=== PATIENT | female | born 1945 | race Caucasian/White ===

== ENCOUNTER 2019-04-23 13:53 | Inpatient (IN) ==
[2019-04-23] MEDS ORDERED: Isovue-370 500 ML BOTTLE IVP ONE (14:02)
[2019-04-23 14:37] LABS: Hematocrit 44.2 % (35.3-44.9); Hemoglobin 14.6 g/dL (11.5-15.4); Mean Corpuscular Hemoglobin 28.9 pg (28.0-33.3); Mean Corpuscular Volume 87.4 fL (83.0-100.0); Mean Platelet Volume 9.7 fL (9.4-12.4); Platelet Count 174 K/mcL (140-400); Red Blood Count 5.06 M/mcL (3.82-4.97); Red Cell Distribution Width 13.2 % (11.5-14.5); White Blood Count 7.4 K/mcL (4.3-11.1)
[2019-04-23 14:38] LABS: INR 1.2; Prothrombin Time 13.1 Seconds (9.4-12.1)
[2019-04-23 14:48] LABS: BUN/Creatinine Ratio 20 (6-26); Blood Urea Nitrogen 12 mg/dL (8-23); Calcium 8.9 mg/dL (8.6-10.3); Carbon Dioxide 26 mEq/L (23-29); Chloride 101 mEq/L (98-107); Glucose 159 mg/dL (70-105); Osmolality,Calculated 283 (280-300); Potassium 3.9 mEq/L (3.5-5.1); Sodium 135 mEq/L (136-145); Troponin I < 0.03 ng/mL (< 0.04); eGFR For African Americans > 60 (> 60); eGFR For Non-African Americans > 60 (> 60)
[2019-04-23] MEDS ORDERED: Acetaminophen 325 MG TABLET PO PRN (15:56)
[2019-04-23] MEDS ORDERED: Naloxone 0.4 MG/ML INJ IVP PRN ×2 (15:56→17:09)
[2019-04-23] MEDS ORDERED: *HR* Dextrose 50 % in Water (Syg) 50 ML SYRINGE IVP PRN (16:05)
[2019-04-23] MEDS ORDERED: Dextrose Gel 15 GM/37.5 ML TUBE PO PRN ×2 (16:05)
[2019-04-23] MEDS ORDERED: D5% in Water 1,000 ML IVC PRN (16:05)
[2019-04-23] MEDS ORDERED: Aspirin 81 MG TAB.CHEW PO ONE (16:15)
[2019-04-23] MEDS: Insulin LISPRO 300 UNITS/3 ML VIAL SQ SCH ×2 (18:02→20:32)
[2019-04-23] MEDS ORDERED: *HR* Metoprolol 5 MG/5 ML VIAL IVP ONE ×2 (20:06→20:10)
[2019-04-23] MEDS: Metoprolol XL (24 HR) Succ 50 MG TAB.ER.24H PO SCH (20:33)
[2019-04-23] MEDS ORDERED: *HR* Labetalol 20 MG/4 ML SYRINGE IVP ONE (21:47)
[2019-04-24] MEDS ORDERED: *HR* Metoprolol 5 MG/5 ML VIAL IVP ONE (03:20)
[2019-04-24 06:27] LABS: Hematocrit 43.2 % (35.3-44.9); Hemoglobin 14.5 g/dL (11.5-15.4); Mean Corpuscular HGB Conc 33.6 g/dL (31.6-35.5); Mean Corpuscular Hemoglobin 29.4 pg (28.0-33.3); Mean Corpuscular Volume 87.4 fL (83.0-100.0); Platelet Count 172 K/mcL (140-400); Red Blood Count 4.94 M/mcL (3.82-4.97); Red Cell Distribution Width 13.2 % (11.5-14.5); White Blood Count 6.7 K/mcL (4.3-11.1)
[2019-04-24 06:43] LABS: BUN/Creatinine Ratio 23 (6-26); Blood Urea Nitrogen 13 mg/dL (8-23); Calcium 9.2 mg/dL (8.6-10.3); Carbon Dioxide 32 mEq/L (23-29); Chloride 100 mEq/L (98-107); Glucose 92 mg/dL (70-105); Osmolality,Calculated 282 (280-300); Potassium 3.4 mEq/L (3.5-5.1); Sodium 136 mEq/L (136-145); eGFR For African Americans > 60 (> 60); eGFR For Non-African Americans > 60 (> 60)
[2019-04-24] MEDS: Insulin LISPRO 300 UNITS/3 ML VIAL SQ SCH ×4 (07:34→20:58)
[2019-04-24] MEDS: Aspirin 81 MG TAB.CHEW PO SCH (09:03)
[2019-04-24] MEDS: Metoprolol XL (24 HR) Succ 50 MG TAB.ER.24H PO SCH ×2 (09:03→20:58)
[2019-04-24] MEDS: Ipratropium/Albuterol Neb 3 ML IH SCH ×3 (11:27→21:53)
[2019-04-25] MEDS: Ipratropium/Albuterol Neb 3 ML IH SCH ×3 (04:13→16:07)
[2019-04-25 05:39] LABS: BUN/Creatinine Ratio 31 (6-26); Blood Urea Nitrogen 15 mg/dL (8-23); Carbon Dioxide 29 mEq/L (23-29); Chloride 100 mEq/L (98-107); Glucose 96 mg/dL (70-105); Osmolality,Calculated 283 (280-300); Potassium 4.1 mEq/L (3.5-5.1); Sodium 136 mEq/L (136-145); eGFR For African Americans > 60 (> 60); eGFR For Non-African Americans > 60 (> 60)
[2019-04-25] MEDS: Metoprolol XL (24 HR) Succ 50 MG TAB.ER.24H PO SCH (09:07)
[2019-04-25] MEDS: Aspirin 81 MG TAB.CHEW PO SCH (09:07)
[2019-04-25] MEDS: Insulin LISPRO 300 UNITS/3 ML VIAL SQ SCH ×2 (09:08→12:22)
[2019-04-25 12:28] LABS: Bilirubin,Urine Negative (Negative); Blood,Urine Negative (Negative); Clarity,Urine Cloudy (Clear); Color,Urine Yellow (Yellow); Glucose,Urine (UA) Normal (Normal); Ketones,Urine Negative (Negative); Leukocyte Esterase,Urine Small (Negative); Nitrite,Urine Negative (Negative); Protein,Urine Negative (Neg-Trace); Specific Gravity,Urine 1.019 (1.010-1.025); Urobilinogen,Urine Normal (Normal)
[2019-04-25 12:32] LABS: Bacteria,Urine None Seen per hpf (None-Few); Hyaline Casts,Urine None Seen per lpf (None-Few); RBC,Urine 0-3 per hpf (0-3); Squamous Epithelial Cell,Urine Many per lpf (None-Few)
[2019-04-25 15:20] VITALS: BP 150/72
== END 2019-04-25 17:47 | disposition home health service (06) | DRG 66 ==
LOC: EMEROOARM 13:53 → 3BNU 13:53 → SUATTDRO 15:11 → 3BNU 16:06
PROVIDERS: ADMIT Internal Medicine; ATTEND Internal Medicine

== ENCOUNTER 2020-09-15 14:37 | Inpatient (IN) ==
[2020-09-15] MEDS ORDERED: Isovue-370 500 ML BOTTLE IVP ONE (14:47)
[2020-09-15 15:24] LABS: VBG HCO3 33 mEq/L (21-27); VBG PCO2 59 mmHg (41-51); VBG PH 7.36 pH Units (7.32-7.42); VBG PO2 66 mmHg (25-50)
[2020-09-15 15:28] LABS: Hematocrit 42.5 % (35.3-44.9); Hemoglobin 13.8 g/dL (11.5-15.4); INR 1.4; Mean Corpuscular HGB Conc 32.5 g/dL (31.6-35.5); Mean Corpuscular Hemoglobin 29.9 pg (28.0-33.3); Mean Platelet Volume 10.5 fL (9.4-12.4); Platelet Count 150 K/mcL (140-400); Prothrombin Time 15.9 Seconds (9.4-12.1); Red Blood Count 4.62 M/mcL (3.82-4.97); Red Cell Distribution Width 12.6 % (11.5-14.5); White Blood Count 25.2 K/mcL (4.3-11.1)
[2020-09-15 15:40] LABS: BUN/Creatinine Ratio 25 (6-26); Blood Urea Nitrogen 13 mg/dL (8-23); Calcium 8.6 mg/dL (8.6-10.3); Carbon Dioxide 31 mEq/L (23-29); Chloride 95 mEq/L (98-107); Ethanol < 10 mg/dL (Less than 10); Glucose 206 mg/dL (70-105); Osmolality,Calculated 280 (280-300); Potassium 3.9 mEq/L (3.5-5.1); Sodium 132 mEq/L (136-145); Troponin I < 0.03 ng/mL (< 0.04); eGFR For African Americans > 60 (> 60); eGFR For Non-African Americans > 60 (> 60)
[2020-09-15] MEDS ORDERED: Doxycycline 100 MG in 0.9 % Sodium Chloride Mini Bag 100 ML IVPB ONE (16:25)
[2020-09-15] MEDS ORDERED: cefTRIAXone 1,000 MG in Water for inj. (sterile) 10 ML IVP ONE (16:30)
[2020-09-15] MEDS ORDERED: CEFTRIAXONE IN IS-OSM DEXTROSE 1 GM/50 ML PIGGYBACK IV SCH (16:30)
[2020-09-15] MEDS ORDERED: Furosemide 20 MG/2 ML VIAL IVP ONE (16:30)
[2020-09-15] MEDS ORDERED: Naloxone 0.4 MG/ML INJ IVP PRN (16:40)
[2020-09-15] MEDS ORDERED: Aspirin 325 MG TABLET PO ONE (17:38)
[2020-09-15] MEDS ORDERED: D5% in Water 1,000 ML IVC PRN (18:04)
[2020-09-15] MEDS ORDERED: *HR* Dextrose 50 % in Water (Vial) 50 ML VIAL IVP PRN (18:04)
[2020-09-15] MEDS ORDERED: Dextrose Gel 15 GM/37.5 ML TUBE PO PRN ×2 (18:04)
[2020-09-15] MEDS ORDERED: Perflutren Lipid Microsphere 1.3 ML in 0.9 % Sodium Chloride 8.7 ML IVP PRN (18:20)
[2020-09-15 18:33] LABS: ABG Base Excess 5 mEq/L (-2 to 3); ABG HCO3 34 mEq/L (21-27); ABG Oxygen Saturation 93 % (95-98); ABG PCO2 65 mmHg (35-45); ABG PH 7.33 pH Units (7.32-7.45); ABG PO2 74 mmHg (85-104); ABG TCO2 36 mEq/L (20-26)
[2020-09-15 18:55] LABS: Thyroid Stimulating Hormone 1.198 mcIU/mL (0.340-5.600)
[2020-09-15 20:19] LABS: Albumin/Globulin Ratio 1.5 (1.1-2.2); Bilirubin,Direct 0.1 mg/dL (0.0-0.2); Bilirubin,Indirect 0.6 mg/dL (0.0-1.0); Bilirubin,Total 0.7 mg/dL (0.3-1.0); Globulin 2.7 g/dL (2.4-3.5); Total Protein 6.7 g/dL (6.4-8.9)
[2020-09-15 21:59] LABS: Adenovirus Not Detected (Not Detect); Bordetella Pertussis Not Detected (Not Detect); Chlamydophila pneumoniae Not Detected (Not Detect); Coronavirus 229E Not Detected (Not Detect); Coronavirus HKU1 Not Detected (Not Detect); Coronavirus NL63 Not Detected (Not Detect); Coronavirus OC43 Not Detected (Not Detect); Human Metapneumovirus Not Detected (Not Detect); Human Rhinovirus/Enterovirus Not Detected (Not Detect); Influenza A Subtype 2009 H1 Not Detected (Not Detect); Influenza B Not Detected (Not Detect); Mycoplasma pneumoniae Not Detected (Not Detect); Parainfluenza Virus 1 Not Detected (Not Detect); Parainfluenza Virus 2 Not Detected (Not Detect); Parainfluenza Virus 3 Not Detected (Not Detect); Parainfluenza Virus 4 Not Detected (Not Detect); Respiratory Syncytial Virus Not Detected (Not Detect); SARS-CoV-2 Not Detected (Not Detect)
[2020-09-15] MEDS: Insulin LISPRO 300 UNITS/3 ML VIAL SUBQ SCH (23:51)
[2020-09-16 01:27] LABS: INR 1.4; Prothrombin Time 16.4 Seconds (9.4-12.1)
[2020-09-16 01:46] LABS: Alanine Aminotransferase 14 Units/L (7-52); Albumin 3.5 g/dL (3.5-5.7); Albumin/Globulin Ratio 1.5 (1.1-2.2); Alkaline Phosphatase 60 Units/L (34-104); Aspartate Amino Transferase 15 Units/L (13-39); BUN/Creatinine Ratio 30 (6-26); Bilirubin,Total 0.6 mg/dL (0.3-1.0); Blood Urea Nitrogen 14 mg/dL (8-23); Calcium 8.9 mg/dL (8.6-10.3); Carbon Dioxide 33 mEq/L (23-29); Chloride 95 mEq/L (98-107); Chol/HDL Ratio 1.8 (0-4.9); Cholesterol 87 mg/dL (< 200); Globulin 2.4 g/dL (2.4-3.5); Glucose 125 mg/dL (70-105); HDL Cholesterol 48 mg/dL (40-59); LDL Cholesterol,Calculated 26 mg/dL (< 100); Osmolality,Calculated 284 (280-300); Potassium 3.4 mEq/L (3.5-5.1); Sodium 136 mEq/L (136-145); Total Protein 5.9 g/dL (6.4-8.9); Triglycerides 64 mg/dL (< 150); Troponin I 0.04 ng/mL (< 0.04); eGFR For African Americans > 60 (> 60); eGFR For Non-African Americans > 60 (> 60)
[2020-09-16 02:13] LABS: Estimated Average Glucose 154 mg/dl
[2020-09-16] MEDS: Insulin LISPRO 300 UNITS/3 ML VIAL SUBQ SCH ×3 (05:32→18:37)
[2020-09-16 09:09] LABS: Basophils % 0.3 %; Red Blood Count 4.81 M/mcL (3.82-4.97)
[2020-09-16 09:10] LABS: Basophils # 0.1 K/mcL (0.0-0.2); Hematocrit 45.3 % (35.3-44.9); Hemoglobin 14.2 g/dL (11.5-15.4); Immature Granulocytes % 0.9 % (0-4); Lymphocytes # 1.4 K/mcL (0.6-4.6); Lymphocytes % 5.8 %; Mean Corpuscular HGB Conc 31.3 g/dL (31.6-35.5); Mean Corpuscular Hemoglobin 29.5 pg (28.0-33.3); Mean Corpuscular Volume 94.2 fL (83.0-100.0); Mean Platelet Volume 10.4 fL (9.4-12.4); Monocytes # 1.8 K/mcL (0.0-1.3); Monocytes % 7.7 %; Neutrophils # 20.3 K/mcL (1.6-8.9); Platelet Count 140 K/mcL (140-400); Red Cell Distribution Width 12.7 % (11.5-14.5); Segmented Neutrophils % 85.3 %; White Blood Count 23.8 K/mcL (4.3-11.1)
[2020-09-16 09:13] LABS: Platelet Estimate Normal (Normal)
[2020-09-16 09:53] LABS: Amphetamine Screen,Urine Negative ng/mL (Cutoff=1000); Barbiturate Screen,Urine Negative ng/mL (Cutoff=200); Benzodiazepines Screen,Urine Negative ng/mL (Cutoff=200); Cannabinoid Screen,Urine Negative ng/mL (Cutoff = 50); Cocaine Screen,Urine Negative ng/mL (Cutoff= 300); Opiate Screen,Urine Negative ng/mL (Cutoff=300); Phencyclidine Screen,Urine Negative ng/mL (Cutoff=25)
[2020-09-16] MEDS: cefTRIAXone 1,000 MG in Water for inj. (sterile) 10 ML IVP SCH (09:55)
[2020-09-16] MEDS: Azithromycin 500 MG in 0.9 % Sodium Chloride 250 ML IVPB SCH (09:55)
[2020-09-16] MEDS: Aspirin 81 MG TAB.CHEW PO SCH (09:55)
[2020-09-16 10:08] LABS: Bacteria,Urine Few per hpf (None-Few); Bilirubin,Urine Negative (Negative); Blood,Urine Negative (Negative); Clarity,Urine Clear (Clear); Color,Urine Yellow (Yellow); Glucose,Urine (UA) Normal (Normal); Ketones,Urine Negative (Negative); Leukocyte Esterase,Urine Small (Negative); Mucus,Urine Few per lpf (None-Few); Nitrite,Urine Negative (Negative); PH,Urine 5.5 pH Units (5.0-8.0); Protein,Urine Trace mg/dL (Neg-Trace); Specific Gravity,Urine > 1.030 (1.010-1.025); Squamous Epithelial Cell,Urine Few per hpf (None-Few); Urobilinogen,Urine Normal (Normal)
[2020-09-16] MEDS: 0.9 % Sodium Chloride 1,000 ML IVC SCH (11:12)
[2020-09-16] MEDS ORDERED: E-Z-HD (BARIUM SULF) SUSPENSION PO ONE (14:42)
[2020-09-16] MEDS ORDERED: E-Z-PAQUE (BARIUM SULF) SUSP 1 BOTTLE PO ONE (14:42)
[2020-09-17 02:10] LABS: Red Cell Distribution Width 12.9 % (11.5-14.5)
[2020-09-17 02:12] LABS: Basophils # 0.1 K/mcL (0.0-0.2); Basophils % 0.3 %; Hematocrit 42.6 % (35.3-44.9); Hemoglobin 12.9 g/dL (11.5-15.4); Immature Granulocytes % 0.9 % (0-4); Immature Platelets 10.2 % (1.1-6.1); Lymphocytes # 1.6 K/mcL (0.6-4.6); Mean Corpuscular HGB Conc 30.3 g/dL (31.6-35.5); Mean Corpuscular Hemoglobin 29.7 pg (28.0-33.3); Mean Corpuscular Volume 97.9 fL (83.0-100.0); Mean Platelet Volume 11.5 fL (9.4-12.4); Monocytes # 1.7 K/mcL (0.0-1.3); Monocytes % 8.3 %; Neutrophils # 16.9 K/mcL (1.6-8.9); Platelet Count 116 K/mcL (140-400); Red Blood Count 4.35 M/mcL (3.82-4.97); Segmented Neutrophils % 82.5 %; White Blood Count 20.5 K/mcL (4.3-11.1)
[2020-09-17 02:38] LABS: BUN/Creatinine Ratio 42 (6-26); Blood Urea Nitrogen 25 mg/dL (8-23); Carbon Dioxide 24 mEq/L (23-29); Chloride 99 mEq/L (98-107); Glucose 93 mg/dL (70-105); Osmolality,Calculated 282 (280-300); Potassium 4.8 mEq/L (3.5-5.1); Sodium 134 mEq/L (136-145); eGFR For African Americans > 60 (> 60); eGFR For Non-African Americans > 60 (> 60)
[2020-09-17 03:16] LABS: Calcium 8.6 mg/dL (8.6-10.3)
[2020-09-17] MEDS: Insulin LISPRO 300 UNITS/3 ML VIAL SUBQ SCH ×4 (04:34→17:43)
[2020-09-17] MEDS: 0.9 % Sodium Chloride 1,000 ML IVC SCH (04:38)
[2020-09-17] MEDS: Azithromycin 500 MG in 0.9 % Sodium Chloride 250 ML IVPB SCH (08:07)
[2020-09-17] MEDS: cefTRIAXone 1,000 MG in Water for inj. (sterile) 10 ML IVP SCH (08:07)
[2020-09-17] MEDS: Aspirin 81 MG TAB.CHEW PO SCH (08:14)
[2020-09-17] MEDS: Piperacillin/Tazobactam 3.375 GM in 0.9 % Sodium Chloride Mini Bag 100 ML IVPB SCH (15:44)
[2020-09-18] MEDS: Piperacillin/Tazobactam 3.375 GM in 0.9 % Sodium Chloride Mini Bag 100 ML IVPB SCH ×3 (00:01→15:59)
[2020-09-18] MEDS: Insulin LISPRO 300 UNITS/3 ML VIAL SUBQ SCH ×4 (00:10→17:55)
[2020-09-18] MEDS ORDERED: 0.9 % Sodium Chloride 500 ML IVC ONE (02:02)
[2020-09-18 02:24] LABS: Basophils % 0.1 %; Hemoglobin 13.2 g/dL (11.5-15.4); Immature Granulocytes % 0.7 % (0-4); Lymphocytes # 0.3 K/mcL (0.6-4.6); Lymphocytes % 1.6 %; Mean Corpuscular HGB Conc 30.7 g/dL (31.6-35.5); Mean Corpuscular Hemoglobin 29.7 pg (28.0-33.3); Mean Corpuscular Volume 96.6 fL (83.0-100.0); Mean Platelet Volume 10.5 fL (9.4-12.4); Monocytes % 5.5 %; Neutrophils # 16.7 K/mcL (1.6-8.9); Platelet Count 158 K/mcL (140-400); Red Blood Count 4.45 M/mcL (3.82-4.97); Red Cell Distribution Width 12.8 % (11.5-14.5); Segmented Neutrophils % 92.1 %; White Blood Count 18.2 K/mcL (4.3-11.1)
[2020-09-18] MEDS: Levalbuterol Neb 0.63 MG/3 ML IH PRN ×3 (02:24→22:56)
[2020-09-18 02:48] LABS: BUN/Creatinine Ratio 52 (6-26); Blood Urea Nitrogen 29 mg/dL (8-23); Calcium 9.3 mg/dL (8.6-10.3); Carbon Dioxide 27 mEq/L (23-29); Chloride 99 mEq/L (98-107); Glucose 219 mg/dL (70-105); Osmolality,Calculated 301 (280-300); Potassium 4.3 mEq/L (3.5-5.1); Sodium 139 mEq/L (136-145); eGFR For African Americans > 60 (> 60); eGFR For Non-African Americans > 60 (> 60)
[2020-09-18] MEDS ORDERED: *HR* Metoprolol 5 MG/5 ML VIAL IVP ONE (04:28)
[2020-09-18] MEDS ORDERED: 0.9 % Sodium Chloride 250 ML ONE (07:50)
[2020-09-18] MEDS: Azithromycin 500 MG in 0.9 % Sodium Chloride 250 ML IVPB SCH (07:54)
[2020-09-18] MEDS: Aspirin 81 MG TAB.CHEW PO SCH (07:54)
[2020-09-18] MEDS: lisinopriL 10 MG TABLET PO SCH (09:19)
[2020-09-18] MEDS: 0.9 % Sodium Chloride 1,000 ML IVC SCH (11:09)
[2020-09-18] MEDS: Acetylcysteine 10% 2 ML INHSOL IH SCH ×2 (16:02→22:56)
[2020-09-19] MEDS: 0.9 % Sodium Chloride 1,000 ML IVC SCH ×3 (00:08→23:19)
[2020-09-19] MEDS: Piperacillin/Tazobactam 3.375 GM in 0.9 % Sodium Chloride Mini Bag 100 ML IVPB SCH ×4 (00:09→23:18)
[2020-09-19 00:42] LABS: Basophils % 0.2 %; Hematocrit 40.3 % (35.3-44.9); Hemoglobin 13.3 g/dL (11.5-15.4); Immature Granulocytes % 0.4 % (0-4); Lymphocytes # 0.5 K/mcL (0.6-4.6); Lymphocytes % 3.3 %; Mean Corpuscular Hemoglobin 30.4 pg (28.0-33.3); Mean Platelet Volume 10.5 fL (9.4-12.4); Monocytes # 1.6 K/mcL (0.0-1.3); Monocytes % 10.1 %; Neutrophils # 13.9 K/mcL (1.6-8.9); Platelet Count 163 K/mcL (140-400); Red Blood Count 4.38 M/mcL (3.82-4.97); Red Cell Distribution Width 12.6 % (11.5-14.5); White Blood Count 16.2 K/mcL (4.3-11.1)
[2020-09-19] MEDS: Insulin LISPRO 300 UNITS/3 ML VIAL SUBQ SCH ×5 (00:51→23:23)
[2020-09-19 01:06] LABS: BUN/Creatinine Ratio 61 (6-26); Blood Urea Nitrogen 27 mg/dL (8-23); Carbon Dioxide 30 mEq/L (23-29); Chloride 105 mEq/L (98-107); Glucose 177 mg/dL (70-105); Osmolality,Calculated 303 (280-300); Potassium 3.4 mEq/L (3.5-5.1); Sodium 142 mEq/L (136-145); eGFR For African Americans > 60 (> 60); eGFR For Non-African Americans > 60 (> 60)
[2020-09-19] MEDS: Acetylcysteine 10% 2 ML INHSOL IH SCH ×3 (07:42→21:44)
[2020-09-19] MEDS: Azithromycin 500 MG in 0.9 % Sodium Chloride 250 ML IVPB SCH (09:15)
[2020-09-19] MEDS: lisinopriL 10 MG TABLET PO SCH (09:18)
[2020-09-19] MEDS: Aspirin 81 MG TAB.CHEW PO SCH (09:18)
[2020-09-19] MEDS: carvediloL 6.25 MG TABLET PO SCH (16:32)
[2020-09-19] MEDS: Ipratropium/Albuterol Neb 3 ML IH PRN (21:44)
[2020-09-20] MEDS: Insulin LISPRO 300 UNITS/3 ML VIAL SUBQ SCH ×3 (06:00→18:15)
[2020-09-20 06:16] LABS: BUN/Creatinine Ratio 65 (6-26); Blood Urea Nitrogen 30 mg/dL (8-23); Calcium 8.1 mg/dL (8.6-10.3); Carbon Dioxide 31 mEq/L (23-29); Chloride 109 mEq/L (98-107); Glucose 142 mg/dL (70-105); Osmolality,Calculated 305 (280-300); Potassium 3.7 mEq/L (3.5-5.1); Sodium 143 mEq/L (136-145); eGFR For African Americans > 60 (> 60); eGFR For Non-African Americans > 60 (> 60)
[2020-09-20] MEDS: Ipratropium/Albuterol Neb 3 ML IH PRN ×2 (07:24→15:30)
[2020-09-20] MEDS: Acetylcysteine 10% 2 ML INHSOL IH SCH ×2 (07:24→15:30)
[2020-09-20 07:29] LABS: Basophils % 0.4 %; Eosinophils % 0.2 %; Hematocrit 37.9 % (35.3-44.9); Hemoglobin 11.5 g/dL (11.5-15.4); Immature Granulocytes % 0.4 % (0-4); Lymphocytes # 0.9 K/mcL (0.6-4.6); Mean Corpuscular HGB Conc 30.3 g/dL (31.6-35.5); Mean Corpuscular Hemoglobin 29.6 pg (28.0-33.3); Mean Corpuscular Volume 97.4 fL (83.0-100.0); Mean Platelet Volume 10.6 fL (9.4-12.4); Monocytes # 0.8 K/mcL (0.0-1.3); Neutrophils # 8.3 K/mcL (1.6-8.9); Platelet Count 143 K/mcL (140-400); Red Blood Count 3.89 M/mcL (3.82-4.97); Red Cell Distribution Width 13.1 % (11.5-14.5); White Blood Count 10.1 K/mcL (4.3-11.1)
[2020-09-20] MEDS: lisinopriL 10 MG TABLET PO SCH (09:40)
[2020-09-20] MEDS: Aspirin 81 MG TAB.CHEW PO SCH (09:40)
[2020-09-20] MEDS: carvediloL 6.25 MG TABLET PO SCH ×2 (09:40→16:55)
[2020-09-20] MEDS: Piperacillin/Tazobactam 3.375 GM in 0.9 % Sodium Chloride Mini Bag 100 ML IVPB SCH ×3 (09:41→23:08)
[2020-09-20] MEDS: 0.9 % Sodium Chloride 1,000 ML IVC SCH ×2 (11:47→23:09)
[2020-09-20 23:06] LABS: Amphetamine Screen,Urine Negative ng/mL (Cutoff=1000); Barbiturate Screen,Urine Negative ng/mL (Cutoff=200); Benzodiazepines Screen,Urine Negative ng/mL (Cutoff=200); Cannabinoid Screen,Urine Negative ng/mL (Cutoff = 50); Cocaine Screen,Urine Negative ng/mL (Cutoff= 300); Opiate Screen,Urine Negative ng/mL (Cutoff=300); Phencyclidine Screen,Urine Negative ng/mL (Cutoff=25)
[2020-09-20 23:12] LABS: Amorphous Sediment,Urine Few per hpf (None-Few); Bilirubin,Urine Negative (Negative); Blood,Urine Moderate (Negative); Clarity,Urine Clear (Clear); Color,Urine Yellow (Yellow); Glucose,Urine (UA) 30 mg/dL (Normal); Ketones,Urine 10 mg/dL (Negative); Leukocyte Esterase,Urine Negative (Negative); Mucus,Urine Few per lpf (None-Few); Nitrite,Urine Negative (Negative); Protein,Urine 30 mg/dL (Neg-Trace); RBC,Urine 30-50 per hpf (0-3); Specific Gravity,Urine > 1.030 (1.010-1.025); Squamous Epithelial Cell,Urine Few per hpf (None-Few); Urobilinogen,Urine Normal (Normal)
[2020-09-21] MEDS: Insulin LISPRO 300 UNITS/3 ML VIAL SUBQ SCH ×5 (00:13→23:58)
[2020-09-21] MEDS: Ipratropium/Albuterol Neb 3 ML IH PRN ×4 (00:20→23:22)
[2020-09-21] MEDS: Acetylcysteine 10% 2 ML INHSOL IH SCH ×4 (00:20→23:22)
[2020-09-21 01:19] LABS: Basophils % 0.3 %; Immature Granulocytes % 0.3 % (0-4); Mean Platelet Volume 10.2 fL (9.4-12.4)
[2020-09-21 01:21] LABS: Eosinophils % 0.2 %; Hematocrit 40.5 % (35.3-44.9); Hemoglobin 11.9 g/dL (11.5-15.4); Immature Platelets 4.7 % (1.1-6.1); Lymphocytes # 1.1 K/mcL (0.6-4.6); Lymphocytes % 11.3 %; Mean Corpuscular HGB Conc 29.4 g/dL (31.6-35.5); Mean Corpuscular Hemoglobin 29.3 pg (28.0-33.3); Mean Corpuscular Volume 99.8 fL (83.0-100.0); Monocytes # 0.7 K/mcL (0.0-1.3); Monocytes % 7.3 %; Platelet Count 142 K/mcL (140-400); Red Blood Count 4.06 M/mcL (3.82-4.97); Red Cell Distribution Width 13.1 % (11.5-14.5); Segmented Neutrophils % 80.6 %
[2020-09-21 01:23] LABS: Neutrophils # 8.1 K/mcL (1.6-8.9)
[2020-09-21 01:37] LABS: BUN/Creatinine Ratio 67 (6-26); Blood Urea Nitrogen 36 mg/dL (8-23); Calcium 8.6 mg/dL (8.6-10.3); Carbon Dioxide 29 mEq/L (23-29); Chloride 112 mEq/L (98-107); Glucose 179 mg/dL (70-105); Osmolality,Calculated 315 (280-300); Sodium 146 mEq/L (136-145); eGFR For African Americans > 60 (> 60); eGFR For Non-African Americans > 60 (> 60)
[2020-09-21] MEDS: Piperacillin/Tazobactam 3.375 GM in 0.9 % Sodium Chloride Mini Bag 100 ML IVPB SCH ×3 (07:39→23:50)
[2020-09-21] MEDS: carvediloL 6.25 MG TABLET PO SCH ×2 (07:40→16:59)
[2020-09-21] MEDS: lisinopriL 10 MG TABLET PO SCH (07:40)
[2020-09-21] MEDS: Aspirin 81 MG TAB.CHEW PO SCH (07:40)
[2020-09-21] MEDS: 0.9 % Sodium Chloride 1,000 ML IVC SCH (12:01)
[2020-09-22 02:44] LABS: BUN/Creatinine Ratio 69 (6-26); Blood Urea Nitrogen 33 mg/dL (8-23); Calcium 8.7 mg/dL (8.6-10.3); Carbon Dioxide 23 mEq/L (23-29); Chloride 111 mEq/L (98-107); Glucose 94 mg/dL (70-105); Osmolality,Calculated 305 (280-300); Potassium 3.8 mEq/L (3.5-5.1); Sodium 144 mEq/L (136-145); eGFR For African Americans > 60 (> 60); eGFR For Non-African Americans > 60 (> 60)
[2020-09-22] MEDS: Insulin LISPRO 300 UNITS/3 ML VIAL SUBQ SCH ×3 (04:57→18:33)
[2020-09-22] MEDS: Ipratropium/Albuterol Neb 3 ML IH PRN ×2 (05:08→16:12)
[2020-09-22 07:35] LABS: Hemoglobin 12.4 g/dL (11.5-15.4)
[2020-09-22 07:37] LABS: Basophils % 0.4 %; Eosinophils # 0.1 K/mcL (0.0-0.6); Eosinophils % 0.8 %; Hematocrit 39.9 % (35.3-44.9); Immature Platelets 4.2 % (1.1-6.1); Lymphocytes # 1.4 K/mcL (0.6-4.6); Lymphocytes % 13.1 %; Mean Corpuscular HGB Conc 31.1 g/dL (31.6-35.5); Mean Corpuscular Hemoglobin 29.5 pg (28.0-33.3); Mean Corpuscular Volume 94.8 fL (83.0-100.0); Mean Platelet Volume 10.7 fL (9.4-12.4); Monocytes # 0.6 K/mcL (0.0-1.3); Monocytes % 5.4 %; Neutrophils # 8.2 K/mcL (1.6-8.9); Platelet Count 156 K/mcL (140-400); Red Blood Count 4.21 M/mcL (3.82-4.97); Segmented Neutrophils % 78.3 %; White Blood Count 10.5 K/mcL (4.3-11.1)
[2020-09-22] MEDS: Acetylcysteine 10% 2 ML INHSOL IH SCH ×2 (07:52→16:12)
[2020-09-22] MEDS: Piperacillin/Tazobactam 3.375 GM in 0.9 % Sodium Chloride Mini Bag 100 ML IVPB SCH ×2 (08:57→17:29)
[2020-09-22] MEDS: carvediloL 6.25 MG TABLET PO SCH ×2 (08:58→17:29)
[2020-09-22] MEDS: Aspirin 81 MG TAB.CHEW PO SCH (08:58)
[2020-09-22] MEDS: lisinopriL 10 MG TABLET PO SCH (08:58)
[2020-09-22] MEDS ORDERED: Naloxone 0.4 MG/ML INJ IVP PRN (20:36)
[2020-09-22] MEDS ORDERED: Ketorolac 15 MG/ML VIAL IVP PRN (20:36)
[2020-09-22] MEDS ORDERED: Acetaminophen 325 MG TABLET PO PRN (20:36)
[2020-09-23] MEDS: Ipratropium/Albuterol Neb 3 ML IH PRN ×4 (00:08→23:17)
[2020-09-23] MEDS: Acetylcysteine 10% 2 ML INHSOL IH SCH ×4 (00:08→23:17)
[2020-09-23] MEDS: Insulin LISPRO 300 UNITS/3 ML VIAL SUBQ SCH ×5 (00:32→23:53)
[2020-09-23] MEDS: Piperacillin/Tazobactam 3.375 GM in 0.9 % Sodium Chloride Mini Bag 100 ML IVPB SCH ×4 (00:33→23:49)
[2020-09-23 09:54] LABS: Hematocrit 39.7 % (35.3-44.9); Hemoglobin 12.9 g/dL (11.5-15.4); Mean Corpuscular HGB Conc 32.5 g/dL (31.6-35.5); Mean Corpuscular Hemoglobin 30.2 pg (28.0-33.3); Mean Platelet Volume 10.5 fL (9.4-12.4); Platelet Count 176 K/mcL (140-400); Red Blood Count 4.27 M/mcL (3.82-4.97); Red Cell Distribution Width 12.8 % (11.5-14.5)
[2020-09-23 10:03] LABS: BUN/Creatinine Ratio 63 (6-26); Blood Urea Nitrogen 26 mg/dL (8-23); Carbon Dioxide 33 mEq/L (23-29); Chloride 106 mEq/L (98-107); Glucose 145 mg/dL (70-105); Osmolality,Calculated 307 (280-300); Potassium 3.4 mEq/L (3.5-5.1); Sodium 145 mEq/L (136-145); eGFR For African Americans > 60 (> 60); eGFR For Non-African Americans > 60 (> 60)
[2020-09-23] MEDS: carvediloL 6.25 MG TABLET PO SCH ×2 (10:14→16:00)
[2020-09-23] MEDS: Aspirin 81 MG TAB.CHEW PO SCH (10:14)
[2020-09-23] MEDS: lisinopriL 10 MG TABLET PO SCH (10:14)
[2020-09-23] MEDS: amLODIPine 5 MG TABLET PO SCH (16:00)
[2020-09-24 01:12] LABS: Hematocrit 36.1 % (35.3-44.9); Mean Corpuscular HGB Conc 31.3 g/dL (31.6-35.5); Mean Corpuscular Volume 92.6 fL (83.0-100.0); Mean Platelet Volume 10.1 fL (9.4-12.4); Platelet Count 158 K/mcL (140-400); Red Cell Distribution Width 12.8 % (11.5-14.5); White Blood Count 9.4 K/mcL (4.3-11.1)
[2020-09-24 01:16] LABS: Hemoglobin 11.3 g/dL (11.5-15.4)
[2020-09-24 01:23] LABS: BUN/Creatinine Ratio 58 (6-26); Blood Urea Nitrogen 26 mg/dL (8-23); Calcium 8.6 mg/dL (8.6-10.3); Carbon Dioxide 37 mEq/L (23-29); Chloride 106 mEq/L (98-107); Glucose 172 mg/dL (70-105); Osmolality,Calculated 307 (280-300); Potassium 3.8 mEq/L (3.5-5.1); Sodium 144 mEq/L (136-145); eGFR For African Americans > 60 (> 60); eGFR For Non-African Americans > 60 (> 60)
[2020-09-24] MEDS: Insulin LISPRO 300 UNITS/3 ML VIAL SUBQ SCH ×4 (06:10→23:07)
[2020-09-24] MEDS: Acetylcysteine 10% 2 ML INHSOL IH SCH ×3 (07:24→22:50)
[2020-09-24] MEDS: Ipratropium/Albuterol Neb 3 ML IH PRN (07:24)
[2020-09-24 08:05] LABS: VBG HCO3 37 mEq/L (21-27); VBG PCO2 60 mmHg (41-51); VBG PO2 222 mmHg (25-50)
[2020-09-24] MEDS: Piperacillin/Tazobactam 3.375 GM in 0.9 % Sodium Chloride Mini Bag 100 ML IVPB SCH (09:08)
[2020-09-24] MEDS: Aspirin 81 MG TAB.CHEW PO SCH (09:10)
[2020-09-24] MEDS: lisinopriL 10 MG TABLET PO SCH (09:10)
[2020-09-24] MEDS: carvediloL 6.25 MG TABLET PO SCH (09:10)
[2020-09-24] MEDS: amLODIPine 5 MG TABLET PO SCH (09:10)
[2020-09-24] MEDS ORDERED: Ipratropium/Albuterol Neb 3 ML IH SCH (12:45)
[2020-09-24] MEDS: predniSONE 20 MG TABLET PO SCH (13:09)
[2020-09-24] MEDS: Ipratropium/Albuterol Neb 3 ML IH SCH ×3 (15:22→22:53)
[2020-09-24] MEDS: carvediloL 25 MG TABLET PO SCH (17:35)
[2020-09-25] MEDS: Insulin LISPRO 300 UNITS/3 ML VIAL SUBQ SCH ×5 (05:50→21:09)
[2020-09-25] MEDS: Ipratropium/Albuterol Neb 3 ML IH SCH ×2 (07:29→15:14)
[2020-09-25] MEDS: Acetylcysteine 10% 2 ML INHSOL IH SCH ×3 (07:29→22:09)
[2020-09-25] MEDS: predniSONE 20 MG TABLET PO SCH (08:16)
[2020-09-25] MEDS: Aspirin 81 MG TAB.CHEW PO SCH (08:16)
[2020-09-25] MEDS: carvediloL 25 MG TABLET PO SCH ×2 (08:16→17:21)
[2020-09-25] MEDS: amLODIPine 5 MG TABLET PO SCH (08:16)
[2020-09-25] MEDS: lisinopriL 10 MG TABLET PO SCH (08:16)
[2020-09-25 09:24] LABS: Hematocrit 34.7 % (35.3-44.9); Hemoglobin 11.4 g/dL (11.5-15.4); Mean Corpuscular HGB Conc 32.9 g/dL (31.6-35.5); Mean Corpuscular Hemoglobin 29.8 pg (28.0-33.3); Mean Corpuscular Volume 90.6 fL (83.0-100.0); Mean Platelet Volume 10.7 fL (9.4-12.4); Platelet Count 176 K/mcL (140-400); Red Blood Count 3.83 M/mcL (3.82-4.97); Red Cell Distribution Width 12.3 % (11.5-14.5); White Blood Count 11.2 K/mcL (4.3-11.1)
[2020-09-25 09:43] LABS: BUN/Creatinine Ratio 75 (6-26); Blood Urea Nitrogen 30 mg/dL (8-23); Calcium 8.4 mg/dL (8.6-10.3); Carbon Dioxide 36 mEq/L (23-29); Chloride 99 mEq/L (98-107); Glucose 173 mg/dL (70-105); Osmolality,Calculated 300 (280-300); Potassium 3.6 mEq/L (3.5-5.1); Sodium 140 mEq/L (136-145); eGFR For African Americans > 60 (> 60); eGFR For Non-African Americans > 60 (> 60)
[2020-09-25] MEDS ORDERED: Furosemide 40 MG/4 ML VIAL IVP ONE (15:52)
[2020-09-25] MEDS ORDERED: Isovue-370 500 ML BOTTLE IVP ONE (15:59)
[2020-09-25] MEDS ORDERED: Nitroglycerin 0.4 MG TAB.SUBL SL ONE (16:13)
[2020-09-25 16:42] LABS: D-Dimer 1532 ng/mLFEU (0-500)
[2020-09-25] MEDS ORDERED: *HR* Heparin 5,000 UNIT/ML VIAL IVP ONE (16:45)
[2020-09-25] MEDS ORDERED: Heparin 25,000UNIT/250ML 1/2NS 25,000 UNIT/250 ML IV.SOLN IVC SCH (16:45)
[2020-09-25] MEDS ORDERED: *HR* Heparin 5,000 UNIT/ML VIAL IVP PRN ×2 (16:45)
[2020-09-25 16:48] LABS: BUN/Creatinine Ratio 59 (6-26); Blood Urea Nitrogen 29 mg/dL (8-23); Calcium 8.5 mg/dL (8.6-10.3); Carbon Dioxide 35 mEq/L (23-29); Chloride 100 mEq/L (98-107); Glucose 210 mg/dL (70-105); Osmolality,Calculated 298 (280-300); Potassium 3.8 mEq/L (3.5-5.1); Sodium 138 mEq/L (136-145); eGFR For African Americans > 60 (> 60); eGFR For Non-African Americans > 60 (> 60)
[2020-09-25 17:06] LABS: Heparin anti-factor XA UFH < 0.04 IU/mL (0.30-0.70); INR 1.4; Prothrombin Time 16.5 Seconds (9.4-12.1)
[2020-09-25 17:08] LABS: Activated Partial Thrombo Time 24.8 Seconds (26.0-36.0)
[2020-09-25] MEDS ORDERED: Aspirin 325 MG TABLET PO ONE (17:15)
[2020-09-25] MEDS: Ipratropium/Albuterol Neb 3 ML IH PRN (22:09)
[2020-09-26 00:38] LABS: Hematocrit 32.1 % (35.3-44.9); Hemoglobin 10.8 g/dL (11.5-15.4); Mean Corpuscular HGB Conc 33.6 g/dL (31.6-35.5); Mean Corpuscular Hemoglobin 30.3 pg (28.0-33.3); Mean Corpuscular Volume 90.2 fL (83.0-100.0); Mean Platelet Volume 10.3 fL (9.4-12.4); Platelet Count 155 K/mcL (140-400); Red Blood Count 3.56 M/mcL (3.82-4.97); Red Cell Distribution Width 12.2 % (11.5-14.5); White Blood Count 15.8 K/mcL (4.3-11.1)
[2020-09-26 01:46] LABS: BUN/Creatinine Ratio 63 (6-26); Blood Urea Nitrogen 30 mg/dL (8-23); Calcium 8.1 mg/dL (8.6-10.3); Carbon Dioxide 37 mEq/L (23-29); Chloride 99 mEq/L (98-107); Glucose 207 mg/dL (70-105); Osmolality,Calculated 300 (280-300); Potassium 3.6 mEq/L (3.5-5.1); Sodium 139 mEq/L (136-145); eGFR For African Americans > 60 (> 60); eGFR For Non-African Americans > 60 (> 60)
[2020-09-26] MEDS: Acetylcysteine 10% 2 ML INHSOL IH SCH (07:21)
[2020-09-26] MEDS: Ipratropium/Albuterol Neb 3 ML IH PRN (07:21)
[2020-09-26] MEDS: Ipratropium/Albuterol Neb 3 ML IH SCH ×5 (07:44→23:40)
[2020-09-26] MEDS ORDERED: *HR* Metformin 500 MG TABLET PO SCH (08:00)
[2020-09-26] MEDS: predniSONE 20 MG TABLET PO SCH (08:26)
[2020-09-26] MEDS: Aspirin 81 MG TAB.CHEW PO SCH (08:27)
[2020-09-26] MEDS: lisinopriL 10 MG TABLET PO SCH (08:27)
[2020-09-26] MEDS: amLODIPine 5 MG TABLET PO SCH (08:27)
[2020-09-26] MEDS: carvediloL 25 MG TABLET PO SCH ×2 (08:29→17:27)
[2020-09-26] MEDS: Furosemide 40 MG/4 ML VIAL IVP SCH ×2 (08:34→20:40)
[2020-09-26] MEDS: Insulin LISPRO 300 UNITS/3 ML VIAL SUBQ SCH ×5 (08:34→20:30)
[2020-09-26 11:30] LABS: ABG Base Excess 12 mEq/L (-2 to 3); ABG HCO3 41 mEq/L (21-27); ABG Oxygen Saturation 96 % (95-98); ABG PCO2 87 mmHg (35-45); ABG PH 7.28 pH Units (7.32-7.45); ABG PO2 102 mmHg (85-104); ABG TCO2 44 mEq/L (20-26)
[2020-09-26] MEDS: MethylPREDNISolone 40 MG/ML VIAL IVP SCH ×2 (14:47→18:21)
[2020-09-26 19:13] LABS: VBG HCO3 39 mEq/L (21-27); VBG PCO2 63 mmHg (41-51); VBG PO2 203 mmHg (25-50)
[2020-09-26 21:30] LABS: Bilirubin,Urine Negative (Negative); Blood,Urine Moderate (Negative); Calcium Oxalate Crystals,Urine Present per hpf; Clarity,Urine Clear (Clear); Color,Urine Light-Yellow (Yellow); Glucose,Urine (UA) Normal (Normal); Ketones,Urine Negative (Negative); Leukocyte Esterase,Urine Negative (Negative); Mucus,Urine Few per lpf (None-Few); Nitrite,Urine Negative (Negative); Protein,Urine Trace mg/dL (Neg-Trace); RBC,Urine 50-100 per hpf (0-3); Specific Gravity,Urine 1.028 (1.010-1.025); Squamous Epithelial Cell,Urine Few per hpf (None-Few); Urobilinogen,Urine Normal (Normal)
[2020-09-27] MEDS: Ipratropium/Albuterol Neb 3 ML IH SCH ×6 (03:50→23:49)
[2020-09-27] MEDS: MethylPREDNISolone 40 MG/ML VIAL IVP SCH (05:30)
[2020-09-27 06:03] LABS: Hemoglobin 12.3 g/dL (11.5-15.4); Mean Corpuscular HGB Conc 31.5 g/dL (31.6-35.5); Mean Corpuscular Hemoglobin 29.1 pg (28.0-33.3); Mean Corpuscular Volume 92.2 fL (83.0-100.0); Mean Platelet Volume 10.7 fL (9.4-12.4); Platelet Count 162 K/mcL (140-400); Red Blood Count 4.23 M/mcL (3.82-4.97); Red Cell Distribution Width 12.1 % (11.5-14.5); White Blood Count 9.7 K/mcL (4.3-11.1)
[2020-09-27 06:22] LABS: BUN/Creatinine Ratio 84 (6-26); Blood Urea Nitrogen 36 mg/dL (8-23); Calcium 8.6 mg/dL (8.6-10.3); Carbon Dioxide 38 mEq/L (23-29); Chloride 99 mEq/L (98-107); Glucose 208 mg/dL (70-105); Osmolality,Calculated 306 (280-300); Potassium 3.6 mEq/L (3.5-5.1); Sodium 141 mEq/L (136-145); eGFR For African Americans > 60 (> 60); eGFR For Non-African Americans > 60 (> 60)
[2020-09-27] MEDS: Insulin LISPRO 300 UNITS/3 ML VIAL SUBQ SCH ×4 (08:30→21:41)
[2020-09-27] MEDS: Furosemide 40 MG/4 ML VIAL IVP SCH ×2 (08:31→21:39)
[2020-09-27] MEDS: amLODIPine 5 MG TABLET PO SCH (08:31)
[2020-09-27] MEDS: lisinopriL 10 MG TABLET PO SCH (08:31)
[2020-09-27] MEDS: carvediloL 25 MG TABLET PO SCH ×2 (08:31→16:31)
[2020-09-27] MEDS: Aspirin 81 MG TAB.CHEW PO SCH (08:31)
[2020-09-27] MEDS ORDERED: Ketorolac 15 MG/ML VIAL IVP ONE (14:05)
[2020-09-27 14:07] LABS: Lactate Dehydrogenase 195 Units/L (140-271)
[2020-09-27 14:45] LABS: RBC,Pleural Fluid < 2000 RBC/mcL
[2020-09-27 14:50] LABS: Appearance of Pleural Fl Clear (Clear)
[2020-09-27 15:03] LABS: LDH,Pleural Fluid 55 Units/L (No Ref Range); Total Protein,Pleural Fluid < 2.0 g/dL
[2020-09-27 15:27] LABS: Basophils,Pleural Fluid 0 %; Eosinophils,Pleural Fluid 0 %; Lymphocytes,Pleural Fluid 32.1 %; Monocytes,Pleural Fluid 3.6 %
[2020-09-28] MEDS: Ipratropium/Albuterol Neb 3 ML IH SCH ×5 (03:50→20:11)
[2020-09-28 05:24] LABS: Hematocrit 33.9 % (35.3-44.9); Hemoglobin 10.9 g/dL (11.5-15.4); Mean Corpuscular HGB Conc 32.2 g/dL (31.6-35.5); Mean Corpuscular Hemoglobin 29.1 pg (28.0-33.3); Mean Corpuscular Volume 90.6 fL (83.0-100.0); Mean Platelet Volume 11.2 fL (9.4-12.4); Platelet Count 167 K/mcL (140-400); Red Blood Count 3.74 M/mcL (3.82-4.97); Red Cell Distribution Width 12.2 % (11.5-14.5)
[2020-09-28 05:25] LABS: White Blood Count 19.7 K/mcL (4.3-11.1)
[2020-09-28 05:26] LABS: VBG HCO3 40 mEq/L (21-27); VBG PCO2 59 mmHg (41-51); VBG PH 7.44 pH Units (7.32-7.42); VBG PO2 130 mmHg (25-50)
[2020-09-28 05:44] LABS: BUN/Creatinine Ratio 76 (6-26); Blood Urea Nitrogen 39 mg/dL (8-23); Calcium 8.3 mg/dL (8.6-10.3); Carbon Dioxide 41 mEq/L (23-29); Chloride 97 mEq/L (98-107); Glucose 145 mg/dL (70-105); Osmolality,Calculated 304 (280-300); Potassium 3.1 mEq/L (3.5-5.1); Sodium 141 mEq/L (136-145); eGFR For African Americans > 60 (> 60); eGFR For Non-African Americans > 60 (> 60)
[2020-09-28] MEDS: Insulin LISPRO 300 UNITS/3 ML VIAL SUBQ SCH ×4 (09:21→21:00)
[2020-09-28] MEDS: predniSONE 20 MG TABLET PO SCH (09:29)
[2020-09-28] MEDS: carvediloL 25 MG TABLET PO SCH ×2 (09:30→17:31)
[2020-09-28] MEDS: Aspirin 81 MG TAB.CHEW PO SCH (09:30)
[2020-09-28] MEDS: lisinopriL 10 MG TABLET PO SCH (09:30)
[2020-09-28] MEDS ORDERED: *HR* Heparin 5,000 UNIT/ML VIAL IVP PRN ×2 (16:57)
[2020-09-28] MEDS ORDERED: *HR* Heparin 5,000 UNIT/ML VIAL IVP ONE (16:57)
[2020-09-28] MEDS ORDERED: Heparin 25,000UNIT/250ML 1/2NS 25,000 UNIT/250 ML IV.SOLN IVC SCH (17:00)
[2020-09-28 17:50] LABS: Heparin anti-factor XA UFH < 0.04 IU/mL (0.30-0.70)
[2020-09-28 17:51] LABS: INR 1.3; Prothrombin Time 14.6 Seconds (9.4-12.1)
[2020-09-29] MEDS: Ipratropium/Albuterol Neb 3 ML IH SCH ×7 (00:14→23:41)
[2020-09-29 00:56] LABS: Hematocrit 32.1 % (35.3-44.9); Hemoglobin 10.5 g/dL (11.5-15.4); Immature Platelets 8.4 % (1.1-6.1); Mean Corpuscular HGB Conc 32.7 g/dL (31.6-35.5); Mean Corpuscular Hemoglobin 29.7 pg (28.0-33.3); Mean Corpuscular Volume 90.9 fL (83.0-100.0); Mean Platelet Volume 10.8 fL (9.4-12.4); Red Blood Count 3.53 M/mcL (3.82-4.97); Red Cell Distribution Width 12.2 % (11.5-14.5); White Blood Count 11.6 K/mcL (4.3-11.1)
[2020-09-29 01:15] LABS: BUN/Creatinine Ratio 88 (6-26); Blood Urea Nitrogen 38 mg/dL (8-23); Calcium 8.3 mg/dL (8.6-10.3); Carbon Dioxide 41 mEq/L (23-29); Chloride 96 mEq/L (98-107); Glucose 267 mg/dL (70-105); Osmolality,Calculated 306 (280-300); Potassium 3.3 mEq/L (3.5-5.1); Sodium 139 mEq/L (136-145); eGFR For African Americans > 60 (> 60); eGFR For Non-African Americans > 60 (> 60)
[2020-09-29 08:11] LABS: VBG HCO3 39 mEq/L (21-27); VBG PCO2 32 mmHg (41-51); VBG PH 7.69 pH Units (7.32-7.42); VBG PO2 212 mmHg (25-50)
[2020-09-29] MEDS: carvediloL 25 MG TABLET PO SCH ×2 (10:26→16:14)
[2020-09-29] MEDS: Aspirin 81 MG TAB.CHEW PO SCH (10:26)
[2020-09-29] MEDS: predniSONE 20 MG TABLET PO SCH (10:27)
[2020-09-29] MEDS: Insulin LISPRO 300 UNITS/3 ML VIAL SUBQ SCH ×4 (10:27→20:39)
[2020-09-29] MEDS: lisinopriL 10 MG TABLET PO SCH (10:27)
[2020-09-29 15:36] LABS: VBG HCO3 43 mEq/L (21-27); VBG PCO2 60 mmHg (41-51); VBG PH 7.46 pH Units (7.32-7.42); VBG PO2 144 mmHg (25-50)
[2020-09-30 01:01] LABS: Hematocrit 29.6 % (35.3-44.9); Hemoglobin 9.7 g/dL (11.5-15.4); Mean Corpuscular HGB Conc 32.8 g/dL (31.6-35.5); Mean Corpuscular Hemoglobin 29.8 pg (28.0-33.3); Mean Corpuscular Volume 91.1 fL (83.0-100.0); Mean Platelet Volume 11.2 fL (9.4-12.4); Platelet Count 159 K/mcL (140-400); Red Blood Count 3.25 M/mcL (3.82-4.97); Red Cell Distribution Width 12.3 % (11.5-14.5); White Blood Count 12.7 K/mcL (4.3-11.1)
[2020-09-30 01:12] LABS: VBG HCO3 44 mEq/L (21-27); VBG PCO2 52 mmHg (41-51); VBG PH 7.54 pH Units (7.32-7.42); VBG PO2 139 mmHg (25-50)
[2020-09-30 01:28] LABS: BUN/Creatinine Ratio 100 (6-26); Blood Urea Nitrogen 39 mg/dL (8-23); Calcium 8.3 mg/dL (8.6-10.3); Carbon Dioxide 40 mEq/L (23-29); Chloride 98 mEq/L (98-107); Glucose 146 mg/dL (70-105); Osmolality,Calculated 302 (280-300); Potassium 3.9 mEq/L (3.5-5.1); Sodium 140 mEq/L (136-145); eGFR For African Americans > 60 (> 60); eGFR For Non-African Americans > 60 (> 60)
[2020-09-30] MEDS: Ipratropium/Albuterol Neb 3 ML IH SCH ×3 (03:43→11:02)
[2020-09-30] MEDS ORDERED: *HR* Enoxaparin 40 MG/0.4 ML SYRINGE SQ SCH (06:00)
[2020-09-30] MEDS ORDERED: Furosemide 20 MG TABLET PO SCH (09:00)
[2020-09-30] MEDS: Insulin LISPRO 300 UNITS/3 ML VIAL SUBQ SCH (09:48)
[2020-09-30] MEDS: carvediloL 25 MG TABLET PO SCH (10:43)
[2020-09-30] MEDS: predniSONE 20 MG TABLET PO SCH (10:43)
[2020-09-30] MEDS: Aspirin 81 MG TAB.CHEW PO SCH (10:43)
[2020-09-30] MEDS: lisinopriL 10 MG TABLET PO SCH (10:44)
[2020-09-30 10:55] LABS: VBG HCO3 46 mEq/L (21-27); VBG PCO2 51 mmHg (41-51); VBG PH 7.56 pH Units (7.32-7.42); VBG PO2 200 mmHg (25-50)
[2020-09-30 11:46] VITALS: BP 133/64; PULSE 88; TEMP 97.4; O2SAT 92
== END 2020-09-30 15:14 | disposition home health service (06) | DRG 871 ==
LOC: 2ANU 14:37 → EMEROOARM 14:37 → 2ANU 19:15 → SUATTDRO 09-18 14:00
PROVIDERS: ADMIT Pharmacist; ATTEND Internal Medicine

== ENCOUNTER 2021-04-01 21:34 | Inpatient (IN) ==
[2021-04-01] MEDS ORDERED: Ipratropium/Albuterol Neb 3 ML IH ONE (21:45)
[2021-04-01 22:02] LABS: ABG Base Excess 5 mEq/L (-2 to 3); ABG HCO3 31 mEq/L (21-27); ABG Oxygen Saturation 83 % (95-98); ABG PCO2 49 mmHg (35-45); ABG PH 7.41 pH Units (7.32-7.45); ABG PO2 48 mmHg (85-104); ABG TCO2 33 mEq/L (20-26)
[2021-04-01 22:19] LABS: Basophils % 0.2 %; Mean Corpuscular HGB Conc 31.9 g/dL (31.6-35.5); Mean Corpuscular Hemoglobin 27.8 pg (28.0-33.3)
[2021-04-01 22:21] LABS: Hematocrit 39.8 % (35.3-44.9); Hemoglobin 12.7 g/dL (11.5-15.4); Immature Granulocytes % 0.4 % (0-4); Immature Platelets 7.9 % (1.1-6.1); Lymphocytes % 7.8 %; Mean Corpuscular Volume 87.1 fL (83.0-100.0); Mean Platelet Volume 10.7 fL (9.4-12.4); Monocytes # 1.2 K/mcL (0.0-1.3); Monocytes % 8.9 %; Platelet Count 126 K/mcL (140-400); Red Blood Count 4.57 M/mcL (3.82-4.97); Red Cell Distribution Width 13.9 % (11.5-14.5); Segmented Neutrophils % 82.7 %
[2021-04-01 22:22] LABS: Neutrophils # 10.8 K/mcL (1.6-8.9)
[2021-04-01 22:43] LABS: Alanine Aminotransferase 37 Units/L (7-52); Albumin 3.8 g/dL (3.5-5.7); Albumin/Globulin Ratio 1.2 (1.1-2.2); Alkaline Phosphatase 56 Units/L (34-104); Aspartate Amino Transferase 37 Units/L (13-39); BUN/Creatinine Ratio 35 (6-26); Bilirubin,Direct 0.3 mg/dL (0.0-0.2); Bilirubin,Indirect 0.9 mg/dL (0.0-1.0); Bilirubin,Total 1.2 mg/dL (0.3-1.0); Blood Urea Nitrogen 27 mg/dL (8-23); Carbon Dioxide 29 mEq/L (23-29); Chloride 92 mEq/L (98-107); Globulin 3.1 g/dL (2.4-3.5); Glucose 195 mg/dL (70-105); Osmolality,Calculated 282 (280-300); Potassium 4.1 mEq/L (3.5-5.1); Sodium 131 mEq/L (136-145); Total Protein 6.9 g/dL (6.4-8.9); Troponin I < 0.03 ng/mL (< 0.04); eGFR For African Americans > 60 (> 60); eGFR For Non-African Americans > 60 (> 60)
[2021-04-01 23:29] LABS: INR 1.4; Prothrombin Time 15.5 Seconds (9.4-12.1)
[2021-04-01 23:32] LABS: Activated Partial Thrombo Time 28.9 Seconds (26.0-36.0)
[2021-04-02 00:06] LABS: Influenza A PCR Negative (Negative); Influenza B PCR Negative (Negative); Resp. Syncytial Virus PCR Negative (Negative)
[2021-04-02 00:09] LABS: SARS-CoV-2 by PCR (In House) Positive (Negative)
[2021-04-02 02:01] LABS: ABG Base Excess 6 mEq/L (-2 to 3); ABG HCO3 31 mEq/L (21-27); ABG Oxygen Saturation 84 % (95-98); ABG PCO2 49 mmHg (35-45); ABG PH 7.41 pH Units (7.32-7.45); ABG PO2 49 mmHg (85-104); ABG TCO2 33 mEq/L (20-26)
[2021-04-02] MEDS ORDERED: Naloxone 0.4 MG/ML INJ IVP PRN (02:25)
[2021-04-02] MEDS ORDERED: Acetaminophen 325 MG TABLET PO PRN (02:25)
[2021-04-02] MEDS ORDERED: Ondansetron 4 MG/2 ML VIAL IVP PRN (02:25)
[2021-04-02] MEDS ORDERED: D5% in Water 1,000 ML IVC PRN (03:15)
[2021-04-02] MEDS ORDERED: *HR* Dextrose 50 % in Water (Syg) 50 ML SYRINGE IVP PRN (03:15)
[2021-04-02] MEDS ORDERED: Dextrose Gel 15 GM/37.5 ML TUBE PO PRN ×2 (03:15)
[2021-04-02] MEDS ORDERED: 0.9 % Sodium Chloride 500 ML IVC ONE (03:18)
[2021-04-02] MEDS: Ipratropium 1 PUFF INHALER IH SCH ×6 (03:46→23:11)
[2021-04-02] MEDS ORDERED: 0.9 % Sodium Chloride 1,000 ML IVC ONE (04:29)
[2021-04-02 05:24] LABS: Basophils % 0.1 %; Immature Granulocytes % 0.4 % (0-4); Mean Corpuscular Hemoglobin 28.3 pg (28.0-33.3)
[2021-04-02 05:26] LABS: Hematocrit 36.1 % (35.3-44.9); Hemoglobin 11.6 g/dL (11.5-15.4); Lymphocytes # 0.7 K/mcL (0.6-4.6); Lymphocytes % 4.9 %; Mean Corpuscular HGB Conc 32.1 g/dL (31.6-35.5); Mean Platelet Volume 11.1 fL (9.4-12.4); Monocytes # 0.3 K/mcL (0.0-1.3); Monocytes % 2.5 %; Neutrophils # 12.5 K/mcL (1.6-8.9); Platelet Count 130 K/mcL (140-400); Segmented Neutrophils % 92.1 %; White Blood Count 13.6 K/mcL (4.3-11.1)
[2021-04-02 05:28] LABS: Albumin 3.5 g/dL (3.5-5.7); Albumin/Globulin Ratio 1.3 (1.1-2.2); Bilirubin,Direct 0.4 mg/dL (0.0-0.2); Bilirubin,Indirect 0.6 mg/dL (0.0-1.0); Globulin 2.7 g/dL (2.4-3.5); Magnesium 1.6 mg/dL (1.6-2.6); Total Protein 6.2 g/dL (6.4-8.9)
[2021-04-02 05:50] LABS: ABG Base Excess 5 mEq/L (-2 to 3); ABG HCO3 31 mEq/L (21-27); ABG Oxygen Saturation 93 % (95-98); ABG PCO2 52 mmHg (35-45); ABG PH 7.38 pH Units (7.32-7.45); ABG PO2 70 mmHg (85-104); ABG TCO2 33 mEq/L (20-26); Blood Gas Modality AVAPS; Blood Gas VT 450 cc
[2021-04-02] MEDS ORDERED: Remdesivir 200 MG in 0.9 % Sodium Chloride 100 ML IVPB ONE (06:00)
[2021-04-02] MEDS: Insulin LISPRO 300 UNITS/3 ML VIAL SUBQ SCH ×4 (06:35→23:16)
[2021-04-02] MEDS ORDERED: Dexamethasone Sodium Phos/PF 10 MG/ML VIAL IVP ONE (09:23)
[2021-04-03] MEDS: Ipratropium 1 PUFF INHALER IH SCH ×6 (03:46→23:20)
[2021-04-03] MEDS ORDERED: *HR* Enoxaparin 30 MG/0.3 ML SYRINGE SQ SCH (06:00)
[2021-04-03] MEDS: Insulin LISPRO 300 UNITS/3 ML VIAL SUBQ SCH ×4 (06:09→21:46)
[2021-04-03] MEDS: Remdesivir 100 MG in 0.9 % Sodium Chloride 100 ML IVPB SCH (06:09)
[2021-04-03] MEDS: Dexamethasone Sodium Phos/PF 10 MG/ML VIAL IVP SCH (08:41)
[2021-04-03] MEDS ORDERED: Ringers Solution, Lactated 500 ML IVC ONE (11:58)
[2021-04-03] MEDS: cefTRIAXone 1,000 MG in 0.9 % Sodium Chloride Mini Bag 100 ML IVP SCH (12:24)
[2021-04-03 14:57] LABS: Alanine Aminotransferase 42 Units/L (7-52); Albumin 3.5 g/dL (3.5-5.7); Albumin/Globulin Ratio 1.4 (1.1-2.2); Alkaline Phosphatase 58 Units/L (34-104); Aspartate Amino Transferase 39 Units/L (13-39); BUN/Creatinine Ratio 68 (6-26); Bilirubin,Total 0.6 mg/dL (0.3-1.0); Blood Urea Nitrogen 59 mg/dL (8-23); Calcium 8.9 mg/dL (8.6-10.3); Carbon Dioxide 28 mEq/L (23-29); Chloride 99 mEq/L (98-107); Globulin 2.5 g/dL (2.4-3.5); Glucose 278 mg/dL (70-105); Osmolality,Calculated 307 (280-300); Potassium 3.3 mEq/L (3.5-5.1); Sodium 135 mEq/L (136-145); eGFR For African Americans > 60 (> 60); eGFR For Non-African Americans > 60 (> 60)
[2021-04-04] MEDS: Ipratropium 1 PUFF INHALER IH SCH ×5 (04:04→20:43)
[2021-04-04 05:30] LABS: Basophils % 0.1 %; Hematocrit 31.6 % (35.3-44.9); Hemoglobin 10.2 g/dL (11.5-15.4); Immature Granulocytes % 0.7 % (0-4); Lymphocytes # 0.5 K/mcL (0.6-4.6); Lymphocytes % 2.8 %; Mean Corpuscular HGB Conc 32.3 g/dL (31.6-35.5); Mean Corpuscular Hemoglobin 27.4 pg (28.0-33.3); Mean Corpuscular Volume 84.9 fL (83.0-100.0); Mean Platelet Volume 11.7 fL (9.4-12.4); Monocytes # 0.7 K/mcL (0.0-1.3); Monocytes % 3.8 %; Neutrophils # 18.2 K/mcL (1.6-8.9); Platelet Count 170 K/mcL (140-400); Red Blood Count 3.72 M/mcL (3.82-4.97); Red Cell Distribution Width 14.2 % (11.5-14.5); Segmented Neutrophils % 92.6 %; White Blood Count 19.6 K/mcL (4.3-11.1)
[2021-04-04 05:50] LABS: BUN/Creatinine Ratio 84 (6-26); Blood Urea Nitrogen 54 mg/dL (8-23); Calcium 8.6 mg/dL (8.6-10.3); Carbon Dioxide 29 mEq/L (23-29); Chloride 101 mEq/L (98-107); Glucose 221 mg/dL (70-105); Osmolality,Calculated 302 (280-300); Potassium 3.1 mEq/L (3.5-5.1); Sodium 135 mEq/L (136-145); eGFR For African Americans > 60 (> 60); eGFR For Non-African Americans > 60 (> 60)
[2021-04-04] MEDS: Remdesivir 100 MG in 0.9 % Sodium Chloride 100 ML IVPB SCH (05:51)
[2021-04-04] MEDS: *HR* Enoxaparin 40 MG/0.4 ML SYRINGE SQ SCH (05:52)
[2021-04-04] MEDS: Insulin LISPRO 300 UNITS/3 ML VIAL SUBQ SCH ×3 (08:13→16:33)
[2021-04-04] MEDS: Dexamethasone Sodium Phos/PF 10 MG/ML VIAL IVP SCH (08:14)
[2021-04-04] MEDS ORDERED: Ringers Solution, Lactated 1,000 ML IVC SCH (11:30)
[2021-04-04] MEDS ORDERED: Ringers Solution, Lactated 1,000 ML ONE (11:33)
[2021-04-04] MEDS: cefTRIAXone 1,000 MG in 0.9 % Sodium Chloride Mini Bag 100 ML IVP SCH (12:05)
[2021-04-04 22:31] LABS: Bilirubin,Urine Negative (Negative); Blood,Urine Negative (Negative); Budding Yeast,Urine Few per hpf (None Seen); Clarity,Urine Turbid (Clear); Color,Urine Yellow (Yellow); Glucose,Urine (UA) Normal (Normal); Ketones,Urine 10 mg/dL (Negative); Leukocyte Esterase,Urine Moderate (Negative); Mucus,Urine Few per lpf (None-Few); Nitrite,Urine Negative (Negative); Protein,Urine Trace mg/dL (Neg-Trace); RBC,Urine 0-3 per hpf (0-3); Specific Gravity,Urine 1.026 (1.010-1.025); Squamous Epithelial Cell,Urine Moderate per hpf (None-Few); Transitional Epi Cells,Urine Few per hpf (None-Few); Urobilinogen,Urine Normal (Normal); WBC,Urine 15-30 per hpf (0-3)
[2021-04-05] MEDS: Ipratropium 1 PUFF INHALER IH SCH ×6 (00:06→20:38)
[2021-04-05] MEDS: Remdesivir 100 MG in 0.9 % Sodium Chloride 100 ML IVPB SCH (05:41)
[2021-04-05] MEDS: *HR* Enoxaparin 40 MG/0.4 ML SYRINGE SQ SCH (05:41)
[2021-04-05] MEDS: Insulin LISPRO 300 UNITS/3 ML VIAL SUBQ SCH ×5 (05:58→21:50)
[2021-04-05] MEDS: Dexamethasone Sodium Phos/PF 10 MG/ML VIAL IVP SCH (07:28)
[2021-04-05] MEDS: cefTRIAXone 1,000 MG in 0.9 % Sodium Chloride Mini Bag 100 ML IVP SCH (11:17)
[2021-04-05] MEDS: carvediloL 25 MG TABLET PO SCH (16:00)
[2021-04-05] MEDS: Aspirin Enteric Coated 81 MG Tablet PO SCH (16:00)
[2021-04-06] MEDS: Ipratropium 1 PUFF INHALER IH SCH ×5 (00:15→15:13)
[2021-04-06 02:19] LABS: Alanine Aminotransferase 22 Units/L (7-52); Albumin 2.9 g/dL (3.5-5.7); Albumin/Globulin Ratio 1.5 (1.1-2.2); Alkaline Phosphatase 49 Units/L (34-104); Aspartate Amino Transferase 17 Units/L (13-39); BUN/Creatinine Ratio 68 (6-26); Bilirubin,Direct 0.2 mg/dL (0.0-0.2); Bilirubin,Indirect 0.5 mg/dL (0.0-1.0); Bilirubin,Total 0.7 mg/dL (0.3-1.0); Blood Urea Nitrogen 42 mg/dL (8-23); Calcium 8.4 mg/dL (8.6-10.3); Carbon Dioxide 26 mEq/L (23-29); Chloride 104 mEq/L (98-107); Globulin 1.9 g/dL (2.4-3.5); Glucose 136 mg/dL (70-105); Osmolality,Calculated 293 (280-300); Potassium 3.8 mEq/L (3.5-5.1); Sodium 135 mEq/L (136-145); Total Protein 4.8 g/dL (6.4-8.9); eGFR For African Americans > 60 (> 60); eGFR For Non-African Americans > 60 (> 60)
[2021-04-06] MEDS: Remdesivir 100 MG in 0.9 % Sodium Chloride 100 ML IVPB SCH (05:06)
[2021-04-06] MEDS ORDERED: *HR* Enoxaparin 30 MG/0.3 ML SYRINGE SQ SCH (06:00)
[2021-04-06] MEDS: Insulin LISPRO 300 UNITS/3 ML VIAL SUBQ SCH ×2 (08:50→13:02)
[2021-04-06] MEDS: carvediloL 25 MG TABLET PO SCH (08:51)
[2021-04-06] MEDS: Aspirin Enteric Coated 81 MG Tablet PO SCH (08:51)
[2021-04-06] MEDS: cefTRIAXone 1,000 MG in 0.9 % Sodium Chloride Mini Bag 100 ML IVP SCH (12:10)
[2021-04-06 15:40] VITALS: BP 144/69; PULSE 67; TEMP 97.9; O2SAT 94
[2021-04-07] MEDS ORDERED: Dexamethasone Sodium Phos/PF 10 MG/ML VIAL IVP SCH ×2 (09:00)
== END 2021-04-06 17:07 | disposition home or self-care (01) | DRG 871 ==
LOC: EMEROOARM 21:34 → 2NENU 21:34 → SUATTDRO 04-02 03:57
PROVIDERS: ADMIT Family Medicine; ATTEND Internal Medicine